=== PATIENT | female | born 1985 | race Two or more races ===

== ENCOUNTER 2017-05-23 18:03 | Emergency (ER) | payer OTHER ==
[~2017-05-23] VITALS: Ht 162.6 cm; Wt 89.4 kg
[~2017-05-23 18:03] MED LIST: DIOVAN HCT 80-11 TAB
== END 2017-05-23 21:12 | disposition home or self-care (01) ==
LOC: ER 18:03
DX: N93.8 Other specified abnormal uterine and vaginal bleeding (principal)

== ENCOUNTER 2019-01-22 19:24 | Emergency (ER) | payer OTHER ==
[~2019-01-22] VITALS: Ht 162.6 cm; Wt 87.5 kg
[~2019-01-22 19:24] MED LIST changes: +PROGESTERONE200 MG PO; +SYNTHROID PO; +[UNRECOGNIZED DRUG - OTHER] PO
[2019-01-22] MEDS ORDERED: COZAAR100 MG (19:49)
[2019-01-22] MEDS ORDERED: PROTONIX20 MG (19:50)
[2019-01-22] MEDS ORDERED: HYDROCHLORIC AC25 ML PO (19:50)
[2019-01-22] MEDS ORDERED: NORVASC5 MG (19:50)
[2019-01-22] MEDS ORDERED: FENOFIBRATE50 MG (19:50)
== END 2019-01-22 22:11 | disposition home or self-care (01) ==
LOC: ER 19:24
DX: R42 Dizziness and giddiness (principal)

== ENCOUNTER 2019-04-26 17:38 | Emergency (ER) | payer OTHER ==
[~2019-04-26] VITALS: Ht 162.6 cm; Wt 88.9 kg
[~2019-04-26 17:38] MED LIST changes: +COZAAR100 MG; +FENOFIBRATE50 MG; +HYDROCHLORIC AC25 ML PO; +NORVASC5 MG; +PROTONIX20 MG
[2019-04-26] MEDS ORDERED: [UNRECOGNIZED DRUG - OTHER] PO (17:52)
[2019-04-26] MEDS ORDERED: LYRICA100 MG PO (17:53)
== END 2019-04-26 22:24 | disposition home or self-care (01) ==
LOC: ER 17:38
DX: J11.1 Influenza due to unidentified influenza virus with other respiratory manifestations (principal)

== ENCOUNTER → 2019-09-27 14:01 | Outpatient (CLI) | payer OTHER ==
[~2019-09-27 14:01] MED LIST changes: +LYRICA100 MG PO; +[UNRECOGNIZED DRUG - OTHER] PO
== END | disposition home or self-care (01) ==
LOC: LAB 14:01
PROVIDERS: ATTEND General Practice
DX: J11.1 Influenza due to unidentified influenza virus with other respiratory manifestations (principal); Z20.828 Contact with and (suspected) exposure to other viral communicable diseases; R05 Cough; R51 Headache; Z11.59 Encounter for screening for other viral diseases

== ENCOUNTER 2024-01-08 18:28 | Emergency (ER) | payer OTHER ==
[~2024-01-08] VITALS: Ht 162.6 cm; Wt 88.0 kg
[2024-01-08] MEDS ORDERED: LABETALOL 11 MG/1 ML (19:03)
[2024-01-08] MEDS ORDERED: PRENA1 TRUE CO1 EACH (19:04)
[2024-01-08] MEDS ORDERED: FAMOTIDINE/PF 20 MG/2 ML VIAL IV PUSH ONE (20:15)
[2024-01-08] MEDS ORDERED: MAG HYDROX/ALUMINUM HYD/SIMETH 30 ML BLIST.PACK PO ONE (20:15)
[2024-01-08 20:30] LABS: HEMATOCRIT 36.2 % (36.0-45.00); HEMOGLOBIN 12.3 g/dL (12.0-15.00); MEAN CELL VOLUME 84.2 fL (80.00-100.00); MEAN CORPUSCULAR HEMOGLOBIN 28.6 pg (27.00-32.0); PLATELET COUNT 273 K/uL (150-450)
[2024-01-08 20:39] LABS: PH,URINE 5.5 (5.0-8.0); URINE APPEARANCE Clear; URINE BILIRRUBIN Negative (NEGATIVE); URINE BLOOD Negative; URINE COLOR Yellow; URINE GLUCOSE Negative (NEGATIVE); URINE KETONE Trace (NEGATIVE); URINE LEUKOCYTE Negative; URINE NITRATE Negative; URINE PROTEIN Negative (NEGATIVE); URINE UROBILINOGEN 0.2 E.U./dl
[2024-01-08 20:42] LABS: URINE BACTERIA 375.4 uL (0.0-1933); URINE EPITHELIAL CELLS 60.5 uL (0.0-38.8); URINE RBC 31.9 uL (0.0-20.8); URINE WBC 8.3 uL (0.0-23.2)
[2024-01-08 20:46] LABS: PARTIAL THROMBOPLASTIN TIME 27.3 SECONDS (22.0-34.0); PROTHROMBIN TIME 10.9 SECONDS (9.0-11.5)
[2024-01-08 21:17] LABS: CREATININE SERUM 0.79 mg/dL (0.55-1.02); GFR 81.45; POTASSIUM 3.56 mEq/L (3.5-5.1)
[2024-01-08] MEDS ORDERED: ACETAMINOPHEN 500 MG GEL..CAP PO ONE (21:45)
== END 2024-01-09 01:35 | disposition home or self-care (01) ==
LOC: ER 18:30
PROVIDERS: Emergency Medicine
DX: O20.9 Hemorrhage in early pregnancy, unspecified (principal); O24.111 Pre-existing type 2 diabetes mellitus, in pregnancy, first trimester; Z79.84 Long term (current) use of oral hypoglycemic drugs; O10.911 Unspecified pre-existing hypertension complicating pregnancy, first trimester; Z3A.01 Less than 8 weeks gestation of pregnancy